=== PATIENT | male | born 1980 | race Caucasian/White ===

== ENCOUNTER 2016-04-12 08:58 | Inpatient (IN) | payer OTHER ==
[~2016-04-12] VITALS: Ht 175.3 cm; Wt 100.0 kg
[2016-04-12] VITALS (191 sets, daily range): BP systolic 114–138; BP diastolic 78–94; PULSE 69–96; TEMP 97.5; O2SAT 79–100
[2016-04-12 09:42] LABS: BASO % 0.3 % (0.0-2.0); EOS # 0.1 (0.0-0.7); EOS % 1.4 % (0-4.0); GRAN # 3.6 (1.4-6.5); GRAN % 61.9 % (42.2-75.2); HEMATOCRIT 42.2 % (42.0-52.0); HEMOGLOBIN 14.5 g/dl (13.5-18.0); LYMPH # 1.4 (1.2-3.4); LYMPH % 23.6 % (20.0-51.0); MEAN CELL VOLUME 84 fl (80.0-100.0); MEAN CORPUSCULAR HEMOGLOBIN 29 pg (27.0-31.0); MEAN CORPUSCULAR HGB CONC 34 g/dl (33.0-37.0); MEAN PLATELET VOLUME 10.5 fl (7.4-10.4); MONO # 0.7 (0.1-0.6); MONO % 12.5 % (1.7-9.3); PLATELET COUNT 166 K/mm3 (130-400); REDCELL DISTRIBUTION WIDTH-CV 12.7 % (11.5-14.5); WHITE BLOOD COUNT 5.9 K/mm3 (4.8-10.8)
[2016-04-12 09:50] LABS: INR 1.2 (0.8-3.0); PROTHROMBIN TIME 13.3 SECONDS (9.7-12.8)
[2016-04-12 09:53] LABS: PARTIAL THROMBOPLASTIN TIME 28.5 SECONDS (26.0-37.0)
[2016-04-12 09:59] LABS: ADJUSTED CALCIUM 9.2 mg/dL (8.4-10.2); ALBUMIN 3.8 gm/dL (3.5-5.0); BILIRUBIN,TOTAL 1.4 mg/dL (0.0-1.0); C-REACTIVE PROTEIN 8.2 mg/dL (0.0-0.9); CREATININE, serum 0.84 mg/dL (0.66-1.25); POTASSIUM 3.5 mmol/L (3.4-5.0); TOTAL PROTEIN 7.1 gm/dL (6.4-8.2)
[2016-04-12 10:10] LABS: TROPONIN-I 1.37 ng/mL (0.000-0.034)
[2016-04-12] MEDS ORDERED: TOPROL XL 25MG25 MG PO (16:42)
[2016-04-12] MEDS ORDERED: NEXIUM 40MG40 MG PO (16:42)
[2016-04-12] MEDS ORDERED: ASPIRIN 81M81 MG/TA2 PO (16:59)
== END 2016-04-12 17:17 | disposition home or self-care (01) | DRG 282 ==
LOC: COL.ER 08:58 → IMCU 11:20
PROVIDERS: Family Medicine
PROC: B2111ZZ Fluoroscopy of Multiple Coronary Arteries using Low Osmolar Contrast (ICD-10-PCS; principal; 2016-04-12)
PROC: 4A023N7 Measurement of Cardiac Sampling and Pressure, Left Heart, Percutaneous Approach (ICD-10-PCS; 2016-04-12)
PROC: B2151ZZ Fluoroscopy of Left Heart using Low Osmolar Contrast (ICD-10-PCS; 2016-04-12)
DX: I21.4 Non-ST elevation (NSTEMI) myocardial infarction (principal); K21.9 Gastro-esophageal reflux disease without esophagitis; I34.0 Nonrheumatic mitral (valve) insufficiency
CPT/HCPCS: C1760; C1894; C9113; J2250; J3010; J7030; Q9967

== ENCOUNTER → 2017-06-26 | Outpatient (CLI) | payer OTHER ==
[~2017-06-26] MED LIST: ASPIRIN 81M81 MG/TA2 PO; NEXIUM 40MG40 MG PO; TOPROL XL 25MG25 MG PO
== END ==
LOC: COL.RAD 08:08
DX: R79.89 Other specified abnormal findings of blood chemistry (principal); G93.9 Disorder of brain, unspecified
CPT/HCPCS: A9585

== ENCOUNTER → 2017-11-10 | Outpatient (CLI) | payer OTHER | LOC: COL.RAD 12:14 | DX: G93.89 Other specified disorders of brain (principal) | CPT/HCPCS: A9585 ==